=== PATIENT | female | born 1975 ===

== ENCOUNTER 2020-10-05 07:20 | Outpatient (REF) | payer BC, SELFPAY ==
--- NOTE | 2020-10-05 07:25 | MM_ITS ---
EXAMINATION: MM SCREENING DIGITAL BREAST TOMOSYNTHESIS, BILATERAL CLINICAL INFORMATION: Screening. Asymptomatic. Family history breast cancer, mother age 52; aunt, age 40s. The lifetime risk of breast cancer based on the Tyrer-Cuzick Model is 29%. COMPARISON: Mammography: 01/07/2017 (baseline). TECHNIQUE: Digital breast tomosynthesis is performed in both the craniocaudal and mediolateral oblique views along with computer-aided detection (CAD). Synthesized 2D images are generated from the tomosynthesis. Additional exaggerated right CC view is provided. FINDINGS: There are scattered areas of fibroglandular density (ACR BI-RADS breast composition Category b). There are no significant masses, abnormal calcifications, or other abnormalities. Parenchymal pattern is similar to prior exam. The skin contours are smooth. MM/MM tomosynthesis screening BI IMPRESSION: No significant changes from prior baseline exam 2016. ASSESSMENT: BI-RADS 1: Negative RECOMMENDATION: 1. Routine annual mammography screening. 2. The lifetime risk of breast cancer based on the Tyrer-Cuzick Model is 29%. Additional annual adjunct screening with breast MRI may be of benefit in women with a risk score of 20% or greater. This patient's information was entered into a reminder system with a target due date for their next mammogram.
[2020-10-05 09:24] LABS: Alanine Aminotransferase 115 U/L (0-31); Albumin Level 4.4 g/dL (3.5-5.0); Alkaline Phosphatase 118 U/L (39-117); Anion Gap 14 (12-20); Aspartate Amino Transferase 72 U/L (5-31); Bilirubin Total 0.3 mg/dL (0.0-1.0); Blood Urea Nitrogen 10 mg/dL (9-16); Calcium 9.4 mg/dL (8.4-10.2); Carbon Dioxide 26 mmol/L (22-29); Chloride 102 mmol/L (96-108); Estimated Glomerular Filt Rate > 60; Glucose Random 279 mg/dL (60-115); Potassium 4.5 mmol/l (3.3-5.1); Sodium 137 mmol/L (135-145); Total Protein 7.8 g/dL (6.5-8.0)
[2020-10-05 09:37] LABS: Free T4 (Free Thyroxine) 0.66 ng/dL (0.71-1.85); Thyroid Stimulating Hormone 21.85 uIU/mL (0.32-4.0)
[2020-10-06 17:57] LABS: Thyroid Peroxidase Antibodies 223 IU/mL (<9)
== END 2020-10-05 07:21 | disposition home or self-care (01) ==
LOC: HO.MAMMO 07:20
PROVIDERS: Absent Provider Internal Medicine; PCP Internal Medicine; Visit Provider Advanced Practice Midwife
DX: I10 Essential (primary) hypertension (principal); E03.9 Hypothyroidism, unspecified
CPT/HCPCS: 36415; 77063; 77067; 80053; 84439; 84443; 86376

== ENCOUNTER 2021-04-24 07:59 | Outpatient (REF) | payer OTHER, SELFPAY ==
[2021-04-24 08:28] LABS: MANUAL DIFF FLAG NO
[2021-04-24 08:34] LABS: Basophils Absolute Auto 0.1 X10*3/uL (0.0-0.2); Basophils Percent Auto 0.8 % (0-2); Eosinophils Absolute Auto 0.2 X10*3/uL (0.0-0.4); Hematocrit 41.8 % (37-47); Hemoglobin 13.4 g/dl (12.0-16.0); Imm Gran Abs Auto 0.07 X10*3/uL (0.00-0.03); Imm Gran Pct Auto 0.7 % (0.0-0.4); Lymphocytes Absolute Auto 2.5 X10*3/uL (1.2-4.9); Lymphocytes Percent Auto 24.2 % (20-40); Mean Corpuscular HGB Conc 32.1 g/dl (31.0-35.0); Mean Corpuscular Hemoglobin 29.5 pg (27.0-33.0); Mean Corpuscular Volume 92.1 fL (80-98); Mean Platelet Volume 10.8 fL (9.4-12.3); Monocytes Absolute Auto 0.6 X10*3/uL (0.1-1.2); Monocytes Percent Auto 5.5 % (2-11); Neutrophils Absolute Auto 6.8 X10*3/uL (2.0-8.3); Neutrophils Percent Auto 66.8 % (45-73); Platelet Count 352 X10*3/uL (160-400); Red Blood Count 4.54 X10*6/uL (4.20-5.50); Red Cell Distribution Width 14.5 % (11.0-16.0); White Blood Count 10.1 X10*3/uL (4.8-10.8)
[2021-04-24 08:46] LABS: Estimated Average Glucose 189 mg/dL; Hemoglobin A1c % 8.2 %
[2021-04-24 09:12] LABS: Alanine Aminotransferase 98 U/L (0-31); Albumin Level 4.5 g/dL (3.5-5.0); Alkaline Phosphatase 95 U/L (39-117); Anion Gap 14 (12-20); Aspartate Amino Transferase 83 U/L (5-31); Bilirubin Total 0.2 mg/dL (0.0-1.0); Blood Urea Nitrogen 14 mg/dL (9-16); Calcium 9.9 mg/dL (8.4-10.2); Carbon Dioxide 25 mmol/L (22-29); Chloride 105 mmol/L (96-108); Estimated Glomerular Filt Rate > 60; Glucose Random 172 mg/dL (60-115); Potassium 4.1 mmol/L (3.3-5.1); Sodium 140 mmol/L (135-145); Total Protein 7.9 g/dL (6.5-8.0)
[2021-04-24 09:23] LABS: Creatinine Urine 57.37 mg/dL; Microalbum/Creatinine Ratio Ur 36.6 ug/mg cr
[2021-04-24 09:47] LABS: Thyroid Stimulating Hormone 26.05 uIU/mL (0.32-4.0)
== END 2021-04-24 08:00 | disposition home or self-care (01) ==
LOC: HO.LAB 07:59
PROVIDERS: PCP Internal Medicine; Visit Provider Internal Medicine
DX: E03.9 Hypothyroidism, unspecified (principal); E11.9 Type 2 diabetes mellitus without complications; I10 Essential (primary) hypertension
CPT/HCPCS: 36415; 80053; 82043; 83036; 84439; 84443; 85025

== ENCOUNTER 2021-08-03 08:00 | Outpatient (REF) | payer OTHER, SELFPAY ==
[2021-08-03 09:19] LABS: Estimated Average Glucose 180 mg/dL; Hemoglobin A1c % 7.9 %
[2021-08-03 09:38] LABS: Anion Gap 16 (12-20); Blood Urea Nitrogen 16 mg/dL (9-16); Calcium 9.8 mg/dL (8.4-10.2); Carbon Dioxide 24 mmol/L (22-29); Chloride 104 mmol/L (96-108); Estimated Glomerular Filt Rate 59; Glucose Random 219 mg/dL (60-115); Potassium 4.8 mmol/L (3.3-5.1); Sodium 139 mmol/L (135-145)
[2021-08-03 10:00] LABS: Thyroid Stimulating Hormone 14.25 uIU/mL (0.32-4.0)
== END 2021-08-03 08:01 | disposition home or self-care (01) ==
LOC: HO.LAB 08:00
PROVIDERS: PCP Internal Medicine; Visit Provider Internal Medicine
DX: E03.9 Hypothyroidism, unspecified (principal); E11.9 Type 2 diabetes mellitus without complications
CPT/HCPCS: 36415; 80048; 83036; 84436; 84443

== ENCOUNTER → 2021-09-14 09:55 | Outpatient (BNVA) | payer OTHER, SELFPAY | PROVIDERS: PCP Internal Medicine; Referring Provider Internal Medicine; Visit Provider Surgery ==

== ENCOUNTER 2021-10-25 08:01 | Outpatient (REF) | payer OTHER, SELFPAY ==
[2021-10-27 13:37] LABS: HPV mRNA E6/E7 rflx Not Detected (Not Detected)
== END 2021-10-25 08:02 | disposition home or self-care (01) ==
LOC: HO.LAB 08:01
PROVIDERS: PCP Internal Medicine; Visit Provider Advanced Practice Midwife
DX: Z01.419 Encounter for gynecological examination (general) (routine) without abnormal findings (principal); Z11.51 Encounter for screening for human papillomavirus (HPV)
CPT/HCPCS: 87624; 88142

== ENCOUNTER 2021-11-23 07:54 | Outpatient (REF) | payer OTHER, SELFPAY ==
[2021-11-23 08:22] LABS: MANUAL DIFF FLAG NO
[2021-11-23 08:48] LABS: Basophils Percent Auto 0.4 % (0-2); Eosinophils Absolute Auto 0.1 X10*3/uL (0.0-0.4); Eosinophils Percent Auto 1.4 % (0-4); Hematocrit 40.7 % (37.0-47.0); Hemoglobin 13.2 g/dl (12.0-16.0); Imm Gran Abs Auto 0.06 X10*3/uL (0.00-0.03); Imm Gran Pct Auto 0.6 % (0.0-0.4); Lymphocytes Absolute Auto 2.1 X10*3/uL (1.2-4.9); Lymphocytes Percent Auto 21.1 % (20-40); Mean Corpuscular HGB Conc 32.4 g/dl (31.0-35.0); Mean Corpuscular Hemoglobin 29.7 pg (27.0-33.0); Mean Corpuscular Volume 91.5 fL (80.0-98.0); Mean Platelet Volume 10.8 fL (9.4-12.3); Monocytes Absolute Auto 0.5 X10*3/uL (0.1-1.2); Monocytes Percent Auto 5.3 % (2-11); Neutrophils Absolute Auto 6.9 x10*3/uL (2.0-8.3); Neutrophils Percent Auto 71.2 % (45-73); Platelet Count 307 X10*3/uL (160-400); Red Blood Count 4.45 X10*6/uL (4.20-5.50); Red Cell Distribution Width 14.9 % (11.0-16.0); White Blood Count 9.7 X10*3/uL (4.8-10.8)
[2021-11-23 08:58] LABS: Estimated Average Glucose 246 mg/dL; Hemoglobin A1c % 10.2 %
[2021-11-23 09:31] LABS: Alanine Aminotransferase 99 U/L (0-31); Albumin Level 4.2 g/dL (3.5-5.0); Alkaline Phosphatase 119 U/L (39-117); Anion Gap 17 (12-20); Aspartate Amino Transferase 71 U/L (5-31); Bilirubin Total 0.3 mg/dL (0.0-1.0); Blood Urea Nitrogen 17 mg/dL (9-16); Carbon Dioxide 24 mmol/L (22-29); Chloride 101 mmol/L (96-108); Estimated Glomerular Filt Rate > 60; Glucose Random 337 mg/dL (60-115); Potassium 4.6 mmol/L (3.3-5.1); Sodium 137 mmol/L (135-145); Total Protein 7.5 g/dL (6.5-8.0)
[2021-11-23 09:52] LABS: Thyroid Stimulating Hormone 11.38 uIU/mL (0.32-4.0)
[2021-11-23 10:36] LABS: Creatinine Urine 82.99 mg/dL; Microalbum/Creatinine Ratio Ur 33.7 ug/mg cr
== END 2021-11-23 07:55 | disposition home or self-care (01) ==
LOC: HO.LAB 07:54
PROVIDERS: PCP Internal Medicine; Visit Provider Internal Medicine
DX: E11.9 Type 2 diabetes mellitus without complications (principal); E03.9 Hypothyroidism, unspecified; I10 Essential (primary) hypertension; R79.89 Other specified abnormal findings of blood chemistry
CPT/HCPCS: 36415; 80053; 82043; 83036; 84439; 84443; 85025

== ENCOUNTER 2022-02-19 10:43 | Outpatient (REF) | payer OTHER, SELFPAY ==
--- NOTE | ~2022-02-19 | MM_ITS ---
EXAMINATION: MM SCREENING DIGITAL BREAST TOMOSYNTHESIS, BILATERAL CLINICAL INFORMATION: Screening. Asymptomatic. Family history breast cancer, mother. The lifetime risk of breast cancer based on the Tyrer-Cuzick Model is 28%. COMPARISON: Mammography: 10/05/2020, 01/07/2017 (baseline). TECHNIQUE: Digital breast tomosynthesis is performed in both the craniocaudal and mediolateral oblique views along with computer-aided detection (CAD). Synthesized 2D images are generated from the tomosynthesis. FINDINGS: There are scattered areas of fibroglandular density (ACR BI-RADS breast composition Category b). There are no significant masses, abnormal calcifications, or other abnormalities. There is no developing density or architectural abnormality. Small circumscribed dermal lesion overlies the inferior medial right breast on CC view. The axilla are unremarkable. No significant changes. MM/MM tomosynthesis screening BI IMPRESSION: No mammographic evidence of malignancy. ASSESSMENT: BI-RADS 2: Benign RECOMMENDATION: Routine annual mammography screening. This patient's information was entered into a reminder system with a target due date for their next mammogram.
== END 2022-02-19 10:44 | disposition home or self-care (01) ==
LOC: HO.MAMMO 10:43
PROVIDERS: PCP Internal Medicine; Visit Provider Internal Medicine
DX: Z12.31 Encounter for screening mammogram for malignant neoplasm of breast (principal)
CPT/HCPCS: 77063; 77067

== ENCOUNTER 2022-02-23 07:49 | Outpatient (REF) | payer OTHER, SELFPAY ==
[2022-02-23 08:47] LABS: Estimated Average Glucose 192 mg/dL; Hemoglobin A1c % 8.3 %
[2022-02-23 09:00] LABS: Alanine Aminotransferase 64 U/L (0-31); Albumin Level 4.1 g/dL (3.5-5.0); Alkaline Phosphatase 92 U/L (39-117); Anion Gap 14 (12-20); Aspartate Amino Transferase 40 U/L (5-31); Bilirubin Total 0.3 mg/dL (0.0-1.0); Blood Urea Nitrogen 14 mg/dL (9-16); Calcium 9.9 mg/dL (8.4-10.2); Carbon Dioxide 26 mmol/L (22-29); Chloride 102 mmol/L (96-108); Estimated Glomerular Filt Rate > 60; Glucose Random 230 mg/dL (60-115); Potassium 4.8 mmol/L (3.3-5.1); Sodium 137 mmol/L (135-145); Total Protein 7.4 g/dL (6.5-8.0)
[2022-02-23 09:06] LABS: Creatinine Urine 81.53 mg/dL; Microalbum/Creatinine Ratio Ur 6.1 ug/mg cr
[2022-02-23 09:16] LABS: Free T4 (Free Thyroxine) 1.18 ng/dL (0.71-1.85); Thyroid Stimulating Hormone 0.66 uIU/mL (0.32-4.0)
== END 2022-02-23 07:50 | disposition home or self-care (01) ==
LOC: HO.LAB 07:49
PROVIDERS: PCP Internal Medicine; Visit Provider Internal Medicine
DX: E11.9 Type 2 diabetes mellitus without complications (principal); E03.9 Hypothyroidism, unspecified; I10 Essential (primary) hypertension; R79.89 Other specified abnormal findings of blood chemistry
CPT/HCPCS: 36415; 80053; 82043; 83036; 84439; 84443

== ENCOUNTER 2022-08-23 07:51 | Outpatient (REF) | payer OTHER, SELFPAY ==
[2022-08-23 08:57] LABS: Estimated Average Glucose 177 mg/dL; Hemoglobin A1c % 7.8 %
[2022-08-23 09:31] LABS: Alanine Aminotransferase 41 U/L (0-31); Albumin Level 4.1 g/dL (3.5-5.0); Alkaline Phosphatase 104 U/L (39-117); Anion Gap 13 (12-20); Aspartate Amino Transferase 29 U/L (5-31); Bilirubin Total 0.3 mg/dL (0.0-1.0); Blood Urea Nitrogen 18 mg/dL (9-16); Calcium 9.6 mg/dL (8.4-10.2); Carbon Dioxide 26 mmol/L (22-29); Chloride 103 mmol/L (96-108); Estimated Glomerular Filt Rate > 60; Free T4 (Free Thyroxine) 1.21 ng/dL (0.71-1.85); Glucose Random 220 mg/dL (60-115); Potassium 4.4 mmol/L (3.3-5.1); Sodium 138 mmol/L (135-145); Thyroid Stimulating Hormone 0.02 uIU/mL (0.32-4.0); Total Protein 7.3 g/dL (6.5-8.0)
== END 2022-08-23 07:52 | disposition home or self-care (01) ==
LOC: HO.LAB 07:51
PROVIDERS: PCP Internal Medicine; Visit Provider Internal Medicine
DX: E03.9 Hypothyroidism, unspecified (principal); R79.89 Other specified abnormal findings of blood chemistry; I12.9 Hypertensive chronic kidney disease with stage 1 through stage 4 chronic kidney disease, or unspecified chronic kidney disease; E11.22 Type 2 diabetes mellitus with diabetic chronic kidney disease; N18.9 Chronic kidney disease, unspecified
CPT/HCPCS: 36415; 80053; 83036; 84439; 84443

== ENCOUNTER → 2022-10-29 07:58 | Outpatient (BNVA) | payer OTHER, SELFPAY | PROVIDERS: PCP Internal Medicine; Visit Provider Advanced Practice Midwife | DX: Z01.419 Encounter for gynecological examination (general) (routine) without abnormal findings (principal) ==

== ENCOUNTER 2023-03-25 09:09 | Outpatient (REF) | payer OTHER, SELFPAY ==
[2023-03-25 09:26] LABS: MANUAL DIFF FLAG NO
[2023-03-25 09:39] LABS: Basophils Absolute Auto 0.1 X10*3/uL (0.0-0.2); Basophils Percent Auto 0.7 % (0-2); Eosinophils Absolute Auto 0.1 X10*3/uL (0.0-0.4); Eosinophils Percent Auto 1.2 % (0-4); Hematocrit 39.7 % (37.0-47.0); Hemoglobin 12.6 g/dl (12.0-16.0); Imm Gran Abs Auto 0.04 X10*3/uL (0.00-0.03); Imm Gran Pct Auto 0.4 % (0.0-0.4); Lymphocytes Absolute Auto 2.4 X10*3/uL (1.2-4.9); Mean Corpuscular HGB Conc 31.7 g/dl (31.0-35.0); Mean Corpuscular Hemoglobin 25.6 pg (27.0-33.0); Mean Corpuscular Volume 80.5 fL (80.0-98.0); Mean Platelet Volume 9.8 fL (9.4-12.3); Monocytes Absolute Auto 0.5 X10*3/uL (0.1-1.2); Monocytes Percent Auto 5.3 % (2-11); Neutrophils Absolute Auto 5.9 x10*3/uL (2.0-8.3); Neutrophils Percent Auto 65.4 % (45-73); Platelet Count 387 X10*3/uL (160-400); Red Blood Count 4.93 X10*6/uL (4.20-5.50); Red Cell Distribution Width 15.2 % (11.0-16.0)
[2023-03-25 09:54] LABS: Estimated Average Glucose 200 mg/dL; Hemoglobin A1c % 8.6 %
[2023-03-25 10:18] LABS: Alanine Aminotransferase 33 U/L (0-31); Albumin Level 3.8 g/dL (3.5-5.0); Alkaline Phosphatase 117 U/L (39-117); Anion Gap 17 (12-20); Aspartate Amino Transferase 24 U/L (5-31); Bilirubin Total 0.3 mg/dL (0.0-1.0); Blood Urea Nitrogen 13 mg/dL (9-16); Calcium 9.7 mg/dL (8.4-10.2); Carbon Dioxide 23 mmol/L (22-29); Chloride 104 mmol/L (96-108); Cholesterol 174 mg/dL; Estimated Glomerular Filt Rate > 60; Glucose Fasting 222 mg/dL (60-99); HDL Cholesterol 38 mg/dL; LDL Cholesterol Calculated 99 mg/dl; Potassium 4.5 mmol/L (3.3-5.1); Sodium 139 mmol/L (135-145); Total Protein 7.6 g/dL (6.5-8.0); Triglycerides 185 mg/dL
[2023-03-25 10:23] LABS: Free T4 (Free Thyroxine) 1.21 ng/dL (0.71-1.85); Thyroid Stimulating Hormone 0.01 uIU/mL (0.32-4.0)
[2023-03-25 11:52] LABS: Creatinine Urine 161.99 mg/dL; Microalbum/Creatinine Ratio Ur 14.8 ug/mg cr
== END 2023-03-25 09:10 | disposition home or self-care (01) ==
LOC: HO.LAB 09:09
PROVIDERS: PCP Internal Medicine; Visit Provider Internal Medicine
DX: Z00.00 Encounter for general adult medical examination without abnormal findings (principal); E11.9 Type 2 diabetes mellitus without complications; E03.9 Hypothyroidism, unspecified
CPT/HCPCS: 36415; 80053; 80061; 82043; 83036; 84439; 84443; 85025

== ENCOUNTER 2023-04-29 07:22 | Outpatient (REF) | payer OTHER, SELFPAY ==
--- NOTE | ~2023-04-29 | MM_ITS ---
EXAMINATION: MM SCREENING DIGITAL BREAST TOMOSYNTHESIS, BILATERAL CLINICAL INFORMATION: Screening. Asymptomatic. The lifetime risk of breast cancer based on the Tyrer-Cuzick Model is 27%. COMPARISON: Mammography: This study is compared with prior exams dating back to 2017. TECHNIQUE: Digital breast tomosynthesis is performed in both the craniocaudal and mediolateral oblique views along with computer-aided detection (CAD). Synthesized 2D images are generated from the tomosynthesis. FINDINGS: There are scattered areas of fibroglandular density (ACR BI-RADS breast composition Category b). There are no significant masses, abnormal calcifications, or other abnormalities. MM/MM tomosynthesis screening BI IMPRESSION: No mammographic evidence of malignancy. Please note the patient's calculated high lifetime risk of breast cancer and family history. If high risk, adjunct annual screening breast MRI has not already begun, this is recommended. Genetic counseling may also be considered. ASSESSMENT: BI-RADS BI-RADS 1 - Negative RECOMMENDATION: Routine annual mammography screening. 1 year F/U This examination should not preclude the clinical evaluation of a suspicious palpable abnormality. This patient's information was entered into a reminder system with a target due date for their next mammogram.
== END 2023-04-29 07:23 | disposition home or self-care (01) ==
LOC: HO.MAMMO 07:22
PROVIDERS: PCP Internal Medicine; Visit Provider Internal Medicine
DX: Z12.31 Encounter for screening mammogram for malignant neoplasm of breast (principal)
CPT/HCPCS: 77063; 77067

== ENCOUNTER → 2023-04-29 07:30 | Outpatient (BNV) | payer OTHER, SELFPAY | PROVIDERS: PCP Internal Medicine; Visit Provider Radiology Diagnostic Radiology | DX: Z12.31 Encounter for screening mammogram for malignant neoplasm of breast (principal) | CPT/HCPCS: 77063; 77067 ==

== ENCOUNTER 2023-07-31 08:02 | Outpatient (REF) | payer OTHER, SELFPAY ==
[2023-07-31 09:58] LABS: Creatinine Urine 95.17 mg/dL; Microalbum/Creatinine Ratio Ur 5.2 ug/mg cr (<30)
[2023-07-31 10:06] LABS: Estimated Average Glucose 203 mg/dL; Hemoglobin A1c % 8.7 % (<6.0)
[2023-07-31 10:23] LABS: Alanine Aminotransferase 24 U/L (0-31); Alkaline Phosphatase 113 U/L (39-117); Anion Gap 15 (12-20); Aspartate Amino Transferase 17 U/L (5-31); Bilirubin Total 0.2 mg/dL (0.0-1.0); Blood Urea Nitrogen 13 mg/dL (9-16); Calcium 9.7 mg/dL (8.4-10.2); Carbon Dioxide 22 mmol/L (22-29); Chloride 105 mmol/L (96-108); Estimated Glomerular Filt Rate > 60; Glucose Random 278 mg/dL (60-115); Potassium 4.1 mmol/L (3.3-5.1); Sodium 138 mmol/L (135-145); Total Protein 7.5 g/dL (6.5-8.0)
[2023-07-31 11:14] LABS: Thyroid Stimulating Hormone < 0.01 uIU/mL (0.32-4.0)
== END 2023-07-31 08:03 | disposition home or self-care (01) ==
LOC: HO.LAB 08:02
PROVIDERS: PCP Internal Medicine; Visit Provider Internal Medicine
DX: E11.9 Type 2 diabetes mellitus without complications (principal); E03.9 Hypothyroidism, unspecified; I10 Essential (primary) hypertension
CPT/HCPCS: 36415; 80053; 82043; 82570; 83036; 84439; 84443

== ENCOUNTER 2023-12-05 07:47 | Outpatient (REF) | payer OTHER, SELFPAY ==
[2023-12-05 09:34] LABS: Anion Gap 14 (12-20); Blood Urea Nitrogen 10 mg/dL (9-16); Calcium 9.4 mg/dL (8.4-10.2); Carbon Dioxide 24 mmol/L (22-29); Chloride 104 mmol/L (96-108); Estimated Glomerular Filt Rate > 60; Glucose Random 280 mg/dL (60-115); Potassium 4.1 mmol/L (3.3-5.1); Sodium 138 mmol/L (135-145)
[2023-12-05 10:03] LABS: Free T4 (Free Thyroxine) 1.22 ng/dL (0.71-1.85); Thyroid Stimulating Hormone < 0.01 uIU/mL (0.32-4.0)
[2023-12-07 02:07] LABS: Triiodothyronine T3 Free 4.3 pg/mL (2.3-4.2)
== END 2023-12-05 07:48 | disposition home or self-care (01) ==
LOC: HO.LAB 07:47
PROVIDERS: PCP Internal Medicine; Visit Provider Internal Medicine
DX: E03.9 Hypothyroidism, unspecified (principal); R42 Dizziness and giddiness; I10 Essential (primary) hypertension; E11.9 Type 2 diabetes mellitus without complications
CPT/HCPCS: 36415; 80048; 84439; 84443; 84481

== ENCOUNTER 2024-05-04 07:19 | Outpatient (REF) | payer OTHER, SELFPAY ==
[2024-05-04 08:16] LABS: MANUAL DIFF FLAG NO
[2024-05-04 08:43] LABS: Basophils Absolute Auto 0.1 X10*3/uL (0.0-0.2); Basophils Percent Auto 0.6 % (0-2); Eosinophils Absolute Auto 0.1 X10*3/uL (0.0-0.4); Eosinophils Percent Auto 1.6 % (0-4); Hematocrit 36.8 % (37.0-47.0); Hemoglobin 11.3 g/dl (12.0-16.0); Imm Gran Abs Auto 0.04 X10*3/uL (0.00-0.03); Imm Gran Pct Auto 0.5 % (0.0-0.4); Lymphocytes Absolute Auto 2.7 X10*3/uL (1.2-4.9); Lymphocytes Percent Auto 31.4 % (20-40); Mean Corpuscular HGB Conc 30.7 g/dl (31.0-35.0); Mean Corpuscular Hemoglobin 22.7 pg (27.0-33.0); Monocytes Absolute Auto 0.6 X10*3/uL (0.1-1.2); Monocytes Percent Auto 6.9 % (2-11); Neutrophils Absolute Auto 5.1 x10*3/uL (2.0-8.3); Platelet Count 367 X10*3/uL (160-400); Red Blood Count 4.97 X10*6/uL (4.20-5.50); Red Cell Distribution Width 17.2 % (11.0-16.0); White Blood Count 8.6 X10*3/uL (4.8-10.8)
[2024-05-04 08:55] LABS: Estimated Average Glucose 177 mg/dL; Hemoglobin A1c % 7.8 % (<6.0)
[2024-05-04 09:19] LABS: Alanine Aminotransferase 19 U/L (0-31); Alkaline Phosphatase 141 U/L (39-117); Anion Gap 14 (12-20); Aspartate Amino Transferase 16 U/L (5-31); Bilirubin Total 0.2 mg/dL (0.0-1.0); Blood Urea Nitrogen 15 mg/dL (9-16); Calcium 9.8 mg/dL (8.4-10.2); Carbon Dioxide 22 mmol/L (22-29); Chloride 106 mmol/L (96-108); Estimated Glomerular Filt Rate > 60; Glucose Random 186 mg/dL (60-115); Sodium 138 mmol/L (135-145); Total Protein 7.7 g/dL (6.5-8.0)
[2024-05-04 09:36] LABS: Free T4 (Free Thyroxine) 1.42 ng/dL (0.71-1.85); Thyroid Stimulating Hormone < 0.01 uIU/mL (0.32-4.0)
[2024-05-04 10:50] LABS: Creatinine Urine 94.22 mg/dL; Microalbum/Creatinine Ratio Ur 10.6 ug/mg cr (<30)
== END 2024-05-04 07:20 | disposition home or self-care (01) ==
LOC: HO.MAMMO 07:19
PROVIDERS: PCP Internal Medicine; Visit Provider Internal Medicine
DX: Z12.31 Encounter for screening mammogram for malignant neoplasm of breast (principal); E11.9 Type 2 diabetes mellitus without complications; E03.9 Hypothyroidism, unspecified
CPT/HCPCS: 36415; 77063; 77067; 80053; 82043; 82570; 83036; 84439; 84443; 85025

== ENCOUNTER → 2024-05-04 07:30 | Outpatient (BNV) | payer OTHER, SELFPAY | PROVIDERS: PCP Internal Medicine; Visit Provider Radiology Diagnostic Radiology | DX: Z12.31 Encounter for screening mammogram for malignant neoplasm of breast (principal) | CPT/HCPCS: 77063; 77067 ==

== ENCOUNTER 2024-05-14 14:27 | Outpatient (AMB) | payer OTHER, SELFPAY ==
--- NOTE | 2024-05-14 14:34 | A.OFFVIS_ITS ---
Intake Visit Reasons: scalp cyst Intake Note: This patient presetns for scalpy cyst. Pt c/o; reports no pain or tenderness, reports no discharge, scalp cyst. Deputy Controller Required: No Accompanied by: Self / Same As Patient Allergies Sulfa (Sulfonamide Antibiotics) Allergy (Unknown, Verified 05/14/24 14:40) Unknown sulfamethoxazole [From BACTRIM] Allergy (Unknown, Verified 05/14/24 14:40) HIVES trimethoprim [From BACTRIM] Allergy (Unknown, Verified 05/14/24 14:40) HIVES Medication List - Last Reconciled 05/14/24 by Gigi Santillan MD dulaglutide (Trulicity) mg subcut glipizide ER 5 mg PO DAILY hydrochlorothiazide 12.5 mg PO DAILY levothyroxine 175 mcg PO DAILY losartan 50 mg PO DAILY metformin ER 500 mg PO BID omeprazole 20 mg PO DAILY triamterene-hydrochlorothiazid 37.5-25 mg 1 cap PO DAILY HPI HPI scalp cyst: Details: 49-year-old female here for scalp cysts. She is known to me for history of scalp cyst in the past She points to 2 areas on the mid parietal region were in she has scalp cysts that have been growing. She says she has had this for several years. She denies any discharge. [facility] Medical History (Updated 05/14/24 @ 14:58 by Gigi Santillan MD) Scalp cyst Abscess Morbid obesity Hypertension Surgical History History of removal of cyst Family History Mother History of breast cancer Maternal Aunt History of breast cancer Social History Alcohol intake: never Patient Tobacco Use Status: Never used Tobacco Sexual orientation: Straight/Heterosexual Gender identity: Female Review of Systems Const Denies chills and Denies fever(s) Card Denies chest pain, Denies dyspnea and Denies dyspnea on exertion Resp Denies cough, Denies dyspnea and Denies dyspnea on exertion GI Denies hematochezia and Denies change in bowel habits Denies hematuria Musc Denies back pain and Denies limited range of motion Neuro Denies focal weakness and Denies convulsions Psych Denies depression and Denies mood swings Physical Exam Const General: comfortable and no acute distress Orientation/consciousness: patient oriented x3 HEENT Other: Scalp cyst, parietal area, about 3 cm in diameter; adjacent to this is another scalp cyst about 2 cm in diameter, both noninflamed Neck Neck: Yes no lymphadenopathy Resp Auscultation: clear to auscultation bilaterally Cardio Rhythm: regular rhythm GI Palpation (GI): Soft to palpation, nontender and no guarding Neuro General: patient oriented x3 Assessment & Plan Assessment & Plan (1) Scalp cyst: Code(s): L72.9 - Follicular cyst of the skin and subcutaneous tissue, unspecified Category: Medical Plan: She has 2 scalp cysts as described above. She wants these removed because of increasing size and discomfort. I reviewed with the technique of excision under local anesthesia. I explained the risks including but not limited to bleeding and infections as well as the benefits and alternatives. She understands and wants to proceed We will schedule her for excision of this scalp cysts as an office procedure. Coding Level of Care Code New Pt Level 3 (52207) Diagnoses Scalp cyst L72.9
== END 2024-05-14 15:01 | disposition home or self-care (01) ==
PROVIDERS: PCP Internal Medicine; Visit Provider Surgery
DX: L72.9 Follicular cyst of the skin and subcutaneous tissue, unspecified (principal)
CPT/HCPCS: 99214

== ENCOUNTER → 2024-05-14 14:27 | Outpatient (BNVA) | payer OTHER, SELFPAY | PROVIDERS: PCP Internal Medicine; Visit Provider Surgery ==

== ENCOUNTER 2024-06-04 09:17 | Outpatient (REF) | payer OTHER, SELFPAY | END 2024-06-04 09:18 | disposition home or self-care (01) | LOC: HO.LNP 09:17 | PROVIDERS: PCP Internal Medicine; Visit Provider Surgery | DX: L72.11 Pilar cyst (principal) | CPT/HCPCS: 11422; 11424; 88304 ==

== ENCOUNTER 2024-06-04 09:17 | Outpatient (AMB) | payer OTHER, SELFPAY ==
--- NOTE | 2024-06-04 09:18 | MHC.OFFVIS ---
Intake Visit Reasons: excision scalp cyst Intake Note: Office procedure: excision scalp cyst. Asp Developer Required: No Accompanied by: Self / Same As Patient Allergies Sulfa (Sulfonamide Antibiotics) Allergy (Unknown, Verified 06/04/24 09:51) Unknown sulfamethoxazole [From BACTRIM] Allergy (Unknown, Verified 06/04/24 09:51) HIVES trimethoprim [From BACTRIM] Allergy (Unknown, Verified 06/04/24 09:51) HIVES HPI HPI excision scalp cyst: Details: She is here for excision of scalp cysts. [facility] Medical History (Updated 05/14/24 @ 14:58 by Gigi Santillan MD) Scalp cyst Abscess Morbid obesity Hypertension Surgical History (Updated 06/02/24 @ 13:14 by Charlotte Jama [facility]) History of removal of cyst History of removal of cyst Family History Mother History of breast cancer Maternal Aunt History of breast cancer Social History Alcohol intake: never Patient Tobacco Use Status: Never used Tobacco Sexual orientation: Straight/Heterosexual Gender identity: Female Office Procedures Excision Details: She was in reclining position. There were 2 scalp cysts on the parietal area. One was about 3 cm in diameter. The 2nd 1 was about 1 cm in diameter I infiltrated the 2 areas with lidocaine 1%. I made the incision on the scalp overlying the larger cyst with a blade 15. This carried down through the full-thickness of the skin and subcutaneous fat until the cyst capsule was visualized. I sharply dissected the cyst capsule off of the rest of the subcutaneous layer with fine scissors. This was then delivered and sent as a specimen. This was about 3 cm in diameter I made an incision on the 2nd area with a blade 15. This was carried down through the full-thickness of the skin subcutaneous fat until the cyst capsule was visualized. I sharply dissected the sips capsule off of the rest of the subcutaneous layer with fine scissors. This was delivered and sent as specimen. This about 1 cm in diameter The aggregate diameter of both cysts were therefore about 4 cm . I closed both incisions with 3-0 simple interrupted sutures. Bacitracin dressings were applied. The procedure was completed. She tolerated procedure well. There were no immediate complications. Estimated blood loss about 10 cc. [id number] scalp/neck/hands/feet/genitalia 3.1cm-4cm Procedure code (CPT) selection complete Assessment & Plan Assessment & Plan (1) Scalp cyst: Code(s): L72.9 - Follicular cyst of the skin and subcutaneous tissue, unspecified Category: Medical Plan: Excision was done under local anesthesia. She tolerated procedure well. She was given wound care instructions. I will see her in the office for removal sutures in about 2 weeks. Coding Level of Care Code Procedure Only Diagnoses Scalp cyst L72.9 CPT Codes Scalp/Neck/Hands/Feet/Genetalia - CPT: 05768-[id number] scalp/neck/hands/feet/genitalia 3.1cm-4cm ([id number])
== END 2024-06-04 09:56 | disposition home or self-care (01) ==
PROVIDERS: PCP Internal Medicine; Visit Provider Surgery
DX: L72.11 Pilar cyst (principal)
CPT/HCPCS: 11422; 11424

== ENCOUNTER 2024-06-18 13:55 | Outpatient (AMB) | payer OTHER, SELFPAY ==
--- NOTE | 2024-06-18 13:55 | MHC.OFFVIS ---
Intake Visit Reasons: suture removal excision scalp cyst Intake Note: This patient presents for suture removal excision scalp cyst. Pt c/o; reports no complaints. 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 She had tolerated the procedure well. She currently denies significant complaints. [facility] Medical History Scalp cyst Abscess Morbid obesity Hypertension Surgical History History of removal of cyst (~06/04/24) History of removal of cyst Family History Mother History of breast cancer Maternal Aunt History of breast cancer Social History Alcohol intake: never Patient Tobacco Use Status: Never used Tobacco Sexual orientation: Straight/Heterosexual Gender identity: Female Review of Systems Const Denies chills and Denies fever(s) Card Denies chest pain at rest Physical Exam Const General: comfortable and no acute distress HEENT Other: Both excision sites on the scalp are well healed, not infected, sutures intact Assessment & Plan Assessment & Plan (1) Scalp cyst: Code(s): L72.9 - Follicular cyst of the skin and subcutaneous tissue, unspecified Category: Medical Plan: Status post excision. Both sites are well healed. I removed all her sutures. The wound edges remained well apposed Her path report shows Pilar cysts. She understands the benign nature of this. She can follow up on a p.r.n. basis. Coding Level of Care Code Global (86508) Diagnoses Scalp cyst L72.9
== END 2024-06-18 14:03 | disposition home or self-care (01) ==
PROVIDERS: PCP Internal Medicine; Visit Provider Surgery
DX: L72.9 Follicular cyst of the skin and subcutaneous tissue, unspecified (principal)
CPT/HCPCS: 99024

== ENCOUNTER → 2024-06-18 13:55 | Outpatient (BNVA) | payer OTHER, SELFPAY | PROVIDERS: PCP Internal Medicine; Visit Provider Surgery | DX: L72.9 Follicular cyst of the skin and subcutaneous tissue, unspecified (principal) ==

== ENCOUNTER 2025-02-20 09:30 | Outpatient (REF) | payer OTHER, SELFPAY ==
[2025-02-20 09:48] LABS: MANUAL DIFF FLAG NO
[2025-02-20 10:06] LABS: Estimated Average Glucose 197 mg/dL; Hemoglobin A1C 195.3287 umol/L; Hemoglobin A1c % 8.5 % (<6.0); Total Hemoglobin (HGBA1C) 2804.7582 umol/L
[2025-02-20 10:11] LABS: Basophils Percent Auto 0.5 % (0-2); Eosinophils Absolute Auto 0.1 X10*3/uL (0.0-0.4); Eosinophils Percent Auto 1.7 % (0-4); Hematocrit 34.6 % (37.0-47.0); Hemoglobin 10.7 g/dl (12.0-16.0); Imm Gran Abs Auto 0.03 X10*3/uL (0.00-0.03); Imm Gran Pct Auto 0.4 % (0.0-0.4); Lymphocytes Percent Auto 25.6 % (20-40); Mean Corpuscular HGB Conc 30.9 g/dl (31.0-35.0); Mean Platelet Volume 9.8 fL (9.4-12.3); Monocytes Absolute Auto 0.5 X10*3/uL (0.1-1.2); Monocytes Percent Auto 6.2 % (2-11); Neutrophils Percent Auto 65.6 % (45-73); Platelet Count 377 X10*3/uL (160-400); Red Blood Count 4.87 X10*6/uL (4.20-5.50); Red Cell Distribution Width 18.6 % (11.0-16.0); White Blood Count 7.6 X10*3/uL (4.8-10.8)
[2025-02-20 10:29] LABS: Alanine Aminotransferase 18 U/L (0-31); Alkaline Phosphatase 154 U/L (39-117); Anion Gap 12 (12-20); Aspartate Amino Transferase 18 U/L (5-31); Bilirubin Total 0.2 mg/dL (0.0-1.0); Blood Urea Nitrogen 12 mg/dL (9-16); Calcium 9.2 mg/dL (8.4-10.2); Carbon Dioxide 23 mmol/L (22-29); Chloride 108 mmol/L (96-108); Cholesterol 200 mg/dL (<200); Estimated Glomerular Filt Rate > 60; Glucose Fasting 163 mg/dL (60-99); HDL Cholesterol 45 mg/dL (>40); LDL Cholesterol Calculated 110 mg/dL (<100); Potassium 4.2 mmol/L (3.3-5.1); Sodium 139 mmol/L (135-145); Total Protein 7.5 g/dL (6.5-8.0); Triglycerides 227 mg/dL (<150)
[2025-02-20 10:44] LABS: Creatinine Urine 133.61 mg/dL; Microalbum/Creatinine Ratio Ur 9.7 ug/mg cr (<30)
[2025-02-20 10:49] LABS: Free T4 (Free Thyroxine) 1.24 ng/dL (0.71-1.85); Thyroid Stimulating Hormone < 0.01 uIU/mL (0.32-4.0)
== END 2025-02-20 09:31 | disposition home or self-care (01) ==
LOC: HO.LAB 09:30
PROVIDERS: PCP Internal Medicine; Visit Provider Internal Medicine
DX: E11.9 Type 2 diabetes mellitus without complications (principal); E03.9 Hypothyroidism, unspecified; I10 Essential (primary) hypertension
CPT/HCPCS: 36415; 80053; 80061; 82043; 82570; 83036; 84439; 84443; 85025

== ENCOUNTER 2025-02-22 15:07 | Outpatient (AMB) | payer OTHER, SELFPAY ==
--- NOTE | 2025-02-22 15:10 | MHC.PC.OV ---
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 She reports compliance with all medications. She states she was previously taking Trulicity and Ozempic for management of her diabetes but was experiencing some nausea and was not noting and significant improvements in glucose levels and weight. She has been concerned about symptoms such as hot flashes, insomnia, and joint aches. She is still getting regular periods on metformin as she has a history of PCOS. She has been following annually for her eye exams. She is due for screening colonoscopy. [facility] Medical History (Updated 02/22/25 @ 16:53 by DELANEY Ng) HLD (hyperlipidemia) Type 2 diabetes mellitus Hypothyroidism Scalp cyst Abscess Morbid obesity Hypertension Surgical History History of removal of cyst (~06/04/24) History of removal of cyst Family History Mother History of breast cancer Maternal Aunt History of breast cancer Social History Alcohol intake: never Patient Tobacco Use Status: Never used Tobacco Sexual orientation: Straight/Heterosexual Gender identity: Female Review of Systems Const All systems reviewed & are unremarkable except as noted in HPI and below Physical exam (Primary Care) Vital Signs: Last Vital Signs Temp 97.4 F 02/22/25 15:14 Pulse 86 02/22/25 15:14 Resp 16 02/22/25 15:14 BP 132/80 02/22/25 15:14 Pulse Ox 97 02/22/25 15:14 Oxygen Delivery Method Room Air 02/22/25 15:14 BMI result Body Mass Index 45.1 Tobacco/Smoking Status: Tobacco use Status Patient Tobacco Use Status Never used Tobacco 02/22/25 15:17 Const Other: Constitutional - Awake and Alert, No apparent distress Eyes - PERRLA, EOMI Cardiovascular - S1S2, RRR, No edema Respiratory - Normal lung expansion, Normal respiratory effort, No respiratory distress, CTA bilaterally Extremities - no calf tenderness bilaterally, no swelling Skin - Warm/Dry Neurological - Alert & oriented x3 Psychological - Appropriate affect Coding Level of Care Code New Pt Level 4 (18015) Complex EM visit Add On G2211 Diagnoses Hypertension I10 Morbid obesity E66.01 Hypothyroidism E03.9 Type 2 diabetes mellitus E11.9 Perimenopause N95.1 HLD (hyperlipidemia) E78.5 Assessment & Plan Assessment & Plan (1) Hypertension: Code(s): I10 - Essential (primary) hypertension Category: Medical Plan: Controlled with blood pressure 132/80. Continue losartan 50 mg and hydrochlorothiazide 12.5 mg daily. Follow low-sodium diet. Reviewed renal function and electrolyte levels which were normal. (2) Morbid obesity: Code(s): E66.01 - Morbid (severe) obesity due to excess calories Category: Medical Plan: Weight loss efforts encouraged. Continue with healthy diet and improve regular exercise. She is started on Mounjaro to aid with weight loss but also managed glucose levels. (3) Hypothyroidism: Code(s): E03.9 - Hypothyroidism, unspecified Category: Medical Plan: TSH and free T4 ordered. TSH has historically been <0.01 with normal free T4 despite adjustments to dosing. We will reduce levothyroxine to 175 mcg daily. Will recheck TSH and free T4 in 4-6 weeks. We will also checked TPO. Unlikely that the GLP 1 was causing abnormalities in thyroid function as abnormalities in levels were present prior to initiation of Ozempic and Trulicity (4) Type 2 diabetes mellitus: Code(s): E11.9 - Type 2 diabetes mellitus without complications Category: Medical Plan: Uncontrolled with hemoglobin A1c 8.5%. Discussed re-initiation of GLP 1 agonist, Mounjaro. Discussed dosing and side effects of medication. Recommend vitamin supplementation as discussed. Continue glipizide and metformin twice daily as prescribed. Continue diabetic diet. Continue with annual eye exams. (5) Perimenopause: Code(s): N95.1 - Menopausal and female climacteric states Category: Medical Plan: Symptoms of insomnia, night sweats, and arthralgias/myalgias likely related to perimenopause. We will check estradiol, progesterone, testosterone, and FSH. (6) HLD (hyperlipidemia): Code(s): E78.5 - Hyperlipidemia, unspecified Category: Medical Plan: Uncontrolled. Increase atorvastatin to 40 mg daily. Follow-up lipid panel prior to next visit. Low fat diet Plan Labs to be completed in 4-6 weeks. Follow up in 3 months with labs completed prior to visit. Orders: Orders TSH reflex Free T4 3 Weeks E03.9 - Hypothyroidism, unspecified Thyroid Peroxidase Antibodies 3 Weeks E03.9 - Hypothyroidism, unspecified Hemoglobin A1c 10 Weeks E11.9 - Type 2 diabetes mellitus without complications, E78.5 - Hyperlipidemia, unspecified TSH reflex Free T4 6 Weeks E11.9 - Type 2 diabetes mellitus without complications, E78.5 - Hyperlipidemia, unspecified Estradiol Ultra Sensitive 6 Weeks N95.1 - Menopausal and female climacteric states, R23.2 - Flushing Testosterone, Free/Total 6 Weeks N95.1 - Menopausal and female climacteric states, R23.2 - Flushing Progesterone 6 Weeks N95.1 - Menopausal and female climacteric states, R23.2 - Flushing Follicle Stimulating Hormone Today N95.1 - Menopausal and female climacteric states, R23.2 - Flushing Triiodothyronine T3 Free 3 Weeks E03.9 - Hypothyroidism, unspecified Lipid Panel 6 Weeks E11.9 - Type 2 diabetes mellitus without complications, E78.5 - Hyperlipidemia, unspecified Referrals Gastroenterology Referral [id number] - Encounter for screening for lipoid disorders Medications: New atorvastatin 40 mg PO DAILY 90 tabs 1RF levothyroxine 175 mcg PO DAILY 90 tabs 1RF tirzepatide (Mounjaro) for 4 weeks 2.5 mg (0.5 mL) subcut QWEEK 2 mL 1RF
[2025-02-22 15:14] VITALS: BP 132/80; PULSE 86; RESP 16; TEMP 36.3; O2SAT 97; BMI 45.1
== END 2025-02-22 15:50 | disposition home or self-care (01) ==
LOC: HO.HMCHD 15:07
PROVIDERS: PCP Internal Medicine; Visit Provider Physician Assistant
DX: I10 Essential (primary) hypertension (principal); E66.01 Morbid (severe) obesity due to excess calories; E03.9 Hypothyroidism, unspecified; E11.9 Type 2 diabetes mellitus without complications; N95.1 Menopausal and female climacteric states; E78.5 Hyperlipidemia, unspecified

== ENCOUNTER → 2025-02-22 15:07 | Outpatient (BNVA) | payer OTHER, SELFPAY | PROVIDERS: PCP Internal Medicine; Visit Provider Physician Assistant ==

== ENCOUNTER 2025-05-10 07:21 | Outpatient (REF) | payer OTHER, SELFPAY ==
--- NOTE | ~2025-05-10 | MM_ITS ---
EXAMINATION: MM SCREENING DIGITAL BREAST TOMOSYNTHESIS, BILATERAL CLINICAL INFORMATION: Screening. Asymptomatic. COMPARISON: Mammography: Comparison is made with available priors TECHNIQUE: Digital breast mammography with tomosynthesis is performed in both the craniocaudal and mediolateral oblique views along with computer-aided detection (CAD). FINDINGS: There are scattered areas of fibroglandular density (ACR BI-RADS breast composition Category b). There are no significant masses, abnormal calcifications, or other abnormalities. MM/MM tomosynthesis screening BI IMPRESSION: No mammographic evidence of malignancy. ASSESSMENT: BI-RADS BI-RADS 1 - Negative RECOMMENDATION: Routine annual mammography screening. 1 year F/U This examination should not preclude the clinical evaluation of a suspicious palpable abnormality. This patient's information was entered into a reminder system with a target due date for their next mammogram. Electronically signed by: Geeta Miguel DO 05/18/2025 02:35 PM EDT
[2025-05-10 09:18] LABS: Cholesterol 141 mg/dL (<200); HDL Cholesterol 45 mg/dL (>40); Triglycerides 201 mg/dL (<150)
[2025-05-10 09:35] LABS: Hemoglobin A1C 165.6588 umol/L; Total Hemoglobin (HGBA1C) 2900.4484 umol/L
[2025-05-10 12:35] LABS: Free T4 (Free Thyroxine) 1.26 ng/dL (0.71-1.85)
[2025-05-11 06:58] LABS: Follicle Stimulating Hormone 15.3 mIU/mL
[2025-05-26 00:28] LABS: Estradiol Ultra Sensitive 110 pg/mL
[2025-06-02 08:52] LABS: Testosterone, Free 4.7
== END 2025-05-10 07:22 | disposition home or self-care (01) ==
LOC: HO.MAMMO 07:21
PROVIDERS: Absent Provider Physician Assistant; PCP Physician Assistant; Visit Provider Internal Medicine
DX: E03.9 Hypothyroidism, unspecified (principal); N95.1 Menopausal and female climacteric states; R23.2 Flushing; E11.9 Type 2 diabetes mellitus without complications; E78.5 Hyperlipidemia, unspecified; Z12.31 Encounter for screening mammogram for malignant neoplasm of breast; Z01.84 Encounter for antibody response examination
CPT/HCPCS: 36415; 77063; 77067; 80061; 82670; 83001; 83036; 84144; 84402; 84403; 84439; 84443; 84481; 86376

== ENCOUNTER → 2025-05-10 07:30 | Outpatient (BNV) | payer OTHER, SELFPAY | PROVIDERS: Absent Provider Physician Assistant; PCP Physician Assistant; Visit Provider Internal Medicine | DX: Z12.31 Encounter for screening mammogram for malignant neoplasm of breast (principal) | CPT/HCPCS: 77063; 77067 ==

== ENCOUNTER 2025-05-25 15:32 | Outpatient (AMB) | payer OTHER, SELFPAY ==
--- NOTE | 2025-05-25 15:36 | A.OFFPC_ITS ---
Vital Signs 05/25/25 15:41 Height 5 ft 5 in Weight 121.563 kg BMI 44.6 BP 126/82 Respiration 16 Pulse 76 Pulse Source Pulse Oximeter Temp 97.8 F Temp Source Temporal Artery Scan Pulse Oximetry (%) 97 Oxygen Delivery Method Room Air Intake Visit Reasons: 3 month f/u Insulation Estimator Required: No Accompanied by: Self / Same As Patient Allergies Sulfa (Sulfonamide Antibiotics) Allergy (Unknown, Verified 05/25/25 15:37) Unknown sulfamethoxazole (From BACTRIM) Allergy (Unknown, Verified 05/25/25 15:37) HIVES trimethoprim (From BACTRIM) Allergy (Unknown, Verified 05/25/25 15:37) HIVES Medication List - Last Reconciled 05/25/25 by DELANEY Ng atorvastatin 40 mg PO DAILY glipizide ER 5 mg PO DAILY hydrochlorothiazide 12.5 mg PO DAILY ketoconazole 2% 1 appl topical BID levothyroxine (Synthroid) 150 mcg PO DAILY losartan 50 mg PO DAILY metformin ER 500 mg PO BID Mounjaro (tirzepatide) 5 mg (0.5 mL) subcut QWEEK NS omeprazole 20 mg PO DAILY HPI HPI Comments History of Present Illness Details 49-year-old female with history of type 2 diabetes, hypertension, hypothyroidism, and hyperlipidemia with class 3 obesity presents to the office today for management of chronic conditions and to establish care. She reports compliance with all medications. She states she was previously taking Trulicity and Ozempic for management of her diabetes but was experiencing some nausea and was not noting and significant improvements in glucose levels and weight. She is still getting regular periods on metformin as she has a history of PCOS. She has been following annually for her eye exams. Started on mounjaro following previous appt and doing very well. Initially a lot of gas pains. Reports eating smaller portions with less cravings. No n/v/d or constipation. Fasting gluc 120-140, rare up to 160. ROS: General: No fevers, malaise, unintentional weight loss HEENT: No blurred vision, diplopia. No sore throat, nasal congestion, rhinorrhea, sinus pain, ear pain Cardiovascular: No chest pain, palpitations, or leg edema Respiratory: No shortness of breath, wheezing, cough GI: No abdominal pain, nausea, vomiting, diarrhea, constipation, melena, hematochezia : No dysuria, hematuria, increased urinary frequency, decreased urinary output MSK: No myalgia, back pain Neuro: No headaches, weakness, paresthesias Skin: No rashes or lesions EXAM: Constitutional - Awake and Alert, No apparent distress Eyes - PERRL Cardiovascular - S1S2, RRR, No edema Respiratory - Normal lung expansion, Normal respiratory effort, No respiratory distress, CTA bilaterally Extremities - no calf tenderness bilaterally, no swelling Skin - Warm/Dry Neurological - Alert & oriented x3 Psychological - Appropriate affect [facility] [place] Medical History (Updated 05/30/25 @ 15:00 by DELANEY Ng) HLD (hyperlipidemia) Type 2 diabetes mellitus Hypothyroidism Scalp cyst Abscess Morbid obesity Hypertension Surgical History History of removal of cyst (~06/04/24) History of removal of cyst Family History Mother History of breast cancer Maternal Aunt History of breast cancer Social History Alcohol intake: never Patient Tobacco Use Status: Never used Tobacco Sexual orientation: Straight/Heterosexual Gender identity: Female Physical exam (Primary Care) Vital Signs: Last Vital Signs Temp 97.8 F 05/25/25 15:41 Pulse 76 05/25/25 15:41 Resp 16 05/25/25 15:41 BP 126/82 05/25/25 15:41 Pulse Ox 97 05/25/25 15:41 Oxygen Delivery Method Room Air 05/25/25 15:41 BMI result Body Mass Index 44.6 Tobacco/Smoking Status: Tobacco use Status Patient Tobacco Use Status Never used Tobacco 05/25/25 15:38 Coding Level of Care Code Est Pt Level 4 (75595) Complex EM visit Add On G2211 Diagnoses Hypertension I10 HLD (hyperlipidemia) E78.5 Type 2 diabetes mellitus E11.9 Hypothyroidism E03.9 Assessment & Plan Assessment & Plan (1) Hypertension: Code(s): I10 - Essential (primary) hypertension Category: Medical Plan: controlled. continue current therapies (2) HLD (hyperlipidemia): Code(s): E78.5 - Hyperlipidemia, unspecified Category: Medical Plan: At goal. Continue current therapies and efforts toward weight loss (3) Type 2 diabetes mellitus: Code(s): E11.9 - Type 2 diabetes mellitus without complications Category: Medical Plan: Commended on lifestyle modifications. Continue current therapies. A1c slightly elevated but suspect will decrease with ongoing diet management. Annual eye exam (4) Hypothyroidism: Code(s): E03.9 - Hypothyroidism, unspecified Category: Medical Plan: Repeat TSH in 6 weeks. Ref to endo Plan Follow up in 3-4 months. Labs to be completed prior to visit Orders: Orders Basic Metabolic Panel 3 Months D64.9 - Anemia, unspecified, E03.9 - Hypothyroidism, unspecified, E11.9 - Type 2 diabetes mellitus without complications, E78.5 - Hyperlipidemia, unspecified, I10 - Essential (primary) hypertension Hemoglobin A1c 3 Months D64.9 - Anemia, unspecified, E03.9 - Hypothyroidism, unspecified, E11.9 - Type 2 diabetes mellitus without complications, E78.5 - Hyperlipidemia, unspecified, I10 - Essential (primary) hypertension Lipid Panel 3 Months D64.9 - Anemia, unspecified, E03.9 - Hypothyroidism, unspecified, E11.9 - Type 2 diabetes mellitus without complications, E78.5 - Hyperlipidemia, unspecified, I10 - Essential (primary) hypertension IRON PROFILE 3 Months D64.9 - Anemia, unspecified TSH reflex Free T4 6 Weeks E03.9 - Hypothyroidism, unspecified Complete Blood Count Auto Diff 3 Months D64.9 - Anemia, unspecified, E03.9 - Hypothyroidism, unspecified, E11.9 - Type 2 diabetes mellitus without complications, E78.5 - Hyperlipidemia, unspecified, I10 - Essential (primary) hypertension Referrals Endocrinology Referral E03.9 - Hypothyroidism, unspecified, R76.8 - Other specified abnormal immunological findings in serum Medications: New ketoconazole 2% 1 appl topical BID 30 grams 1RF Patient Instructions: Black cohosh
[2025-05-25 15:41] VITALS: BP 126/82; PULSE 76; RESP 16; TEMP 36.6; O2SAT 97; BMI 44.6
== END 2025-05-25 16:15 | disposition home or self-care (01) ==
LOC: HO.HMCHD 15:32
PROVIDERS: PCP Internal Medicine; Visit Provider Physician Assistant
DX: I10 Essential (primary) hypertension (principal); E78.5 Hyperlipidemia, unspecified; E11.9 Type 2 diabetes mellitus without complications; E03.9 Hypothyroidism, unspecified

== ENCOUNTER 2025-07-13 15:39 | Outpatient (AMB) | payer OTHER, SELFPAY ==
[2025-07-13 15:42] VITALS: BP 110/58; PULSE 98; O2SAT 98; BMI 43.6
--- NOTE | 2025-07-13 15:42 | A.OFFVIS_ITS ---
Vital Signs 07/13/25 15:42 Height 5 ft 5 in Weight 262 lb BMI 43.6 BP 110/58 L Blood Pressure Location Lt brachial Position Sitting Pulse 98 Pulse Oximetry (%) 98 Oxygen Delivery Method Room Air Intake Visit Reasons: colo screening Intake Note: Patient new consult for 1st pre Colonoscopy screening. Patient denies any GI issues. Entry Level Sales Associate Required: No Accompanied by: Self / Same As Patient Allergies Sulfa (Sulfonamide Antibiotics) Allergy (Unknown, Verified 07/13/25 15:42) Unknown sulfamethoxazole (From BACTRIM) Allergy (Unknown, Verified 07/13/25 15:42) HIVES trimethoprim (From BACTRIM) Allergy (Unknown, Verified 07/13/25 15:42) HIVES Medication List - Last Reconciled 07/13/25 by Yolanda Redding CNP atorvastatin 40 mg PO DAILY glipizide ER 5 mg PO DAILY hydrochlorothiazide 12.5 mg PO DAILY 90 days ketoconazole 2% 1 appl topical BID levothyroxine (Synthroid) 150 mcg PO DAILY losartan 50 mg PO DAILY metformin ER 500 mg PO BID omeprazole 20 mg PO DAILY tirzepatide (Mounjaro) 7.5 mg (0.5 mL) subcut QWEEK HPI HPI colo screening: Details: Patient is a 50-year-old female with PMH of obesity, diabetes, hyperlipidemia, hypertension, hyperthyroidism. Referred by PCP for pre colonoscopy screening Tatiana reports daily bowel movements without constipation, diarrhea, bleeding, or abdominal pain. Longstanding history of acid reflux, well-controlled with omeprazole for several years, with prior regurgitation symptoms resolved on therapy. No dysphagia or heartburn at present on medication. Past transient/mild anemia noted during recent menses, not ongoing or chronic. Multiple comorbidities managed medically (see PMH). No history of GI malignancy in first-degree relatives. Patient denies: fever/chills, n/v, appetite changes, dysphasia, unintentional wt loss, ab pain or melena/hematochezia. Social hx: -ETOH use, rare use 2-3x/year -denies recreational drug use -non-smoker - family hx as below -denies personal hx of CA -denies significant cardiopulmonary history -no prior sedation/anesthesia history. [facility] Medical History (Updated 07/13/25 @ 16:45 by Yolanda Redding CNP) Acid reflux Colon cancer screening HLD (hyperlipidemia) Type 2 diabetes mellitus Hypothyroidism Scalp cyst Abscess Morbid obesity Hypertension Surgical History History of removal of cyst (~06/04/24) History of removal of cyst Family History Mother History of breast cancer Maternal Aunt History of breast cancer Social History Alcohol intake: never Patient Tobacco Use Status: Never used Tobacco Sexual orientation: Straight/Heterosexual Gender identity: Female Review of Systems Const Reports as per HPI ENT Reports as per HPI Card Reports as per HPI Resp Reports as per HPI GI Reports as per HPI Reports as per HPI Physical Exam Vital Signs: Last Vital Signs Pulse 98 07/13/25 15:42 BP 110/58 L 07/13/25 15:42 Pulse Ox 98 07/13/25 15:42 Oxygen Delivery Method Room Air 07/13/25 15:42 BMI result Body Mass Index 43.6 Const General: healthy appearing, no acute distress and well developed Nutritional Appearance: obese Orientation/consciousness: patient oriented x3 HEENT Head: Yes normal to inspection, Yes normocephalic and Yes atraumatic Face and sinus: Yes normal facial exam Eyes General: appearance normal, both eyes and all related structures Neck Neck: Yes normal visual inspection Resp Effort & Inspection: normal respiratory effort, able to speak in complete sentences, no tracheal deviation and symmetric chest movement Cardio Jugular venous distension: no JVD GI Inspection: Yes obesity Neuro General: patient oriented x3 Gait exam (Neuro): Normal gait present Psych Appearance: grossly normal Mental Status: mental status grossly normal Speech and movement: Normal speech and movement present Affect: normal affect Attitude: cooperative Thought process: Normal thought process present Thought content: Normal thought content present Insight: Good insight present (Psych) Judgement: Good judgement present (Psych) Assessment & Plan Assessment & Plan (1) Colon cancer screening: Code(s): Z12.11 - Encounter for screening for malignant neoplasm of colon Category: Medical Plan: Due for index screening colonoscopy. Presence of mild anemia increases screening importance Medications: -prescriptions for laxative tablets and MiraLax sent to pharmacy; instructions for Gatorade purchase and clear liquid diet given. Understands diabetes medications will need to be held days prior to procedure. Nurse to review med holds per protocol. Patient educated on scheduling process, procedure preparation, including avoiding certain foods and ensuring clear liquid intake Advised on necessity for ride post-procedure due to sedation. (2) Acid reflux: Code(s): K21.9 - Gastro-esophageal reflux disease without esophagitis Category: Medical Qualifiers: Esophagitis presence: esophagitis presence not specified Qualified Code(s): K21.9 - Gastro-esophageal reflux disease without esophagitis Plan: Longstanding reflux, well-managed on omeprazole; history of regurgitation resolved with therapy; on chronic PPI Additional Testing: Upper endoscopy at time of colonoscopy for baseline evaluation, especially due to prolonged PPI use/regurgitation history Medication Management: Continue omeprazole Lifestyle Recommendations: Avoid aggravating foods as previously counseled; adhere to prep/fasting instructions before procedure Follow-Up: Routine unless new symptoms or findings (3) Anemia: Code(s): D64.9 - Anemia, unspecified Category: Medical Qualifiers: Anemia type: unspecified type Qualified Code(s): D64.9 - Anemia, unspecified Plan: Recent anemia noted on labs, likely menstrual; situational pattern, but GI etiology to be re-excluded Additional Testing: Repeat CBC, iron studies, folate, B12; ensure correction/absence of ongoing anemia especially prior to sedation/procedure Medication Management: None at this time; monitor labs Lifestyle Recommendations: N/A Follow-Up: Results review prior to procedure or sooner if new symptoms (bleeding, fatigue, pallor) Plan Follow-up after endoscopy or sooner as needed Time: I spent a total of 22 minutes on the date of encounter which includes: Preparing to see the patient (reviewed previous documentation, test results and medical history) Performing a medically appropriate exam and/or evaluation Ordering medications, tests, and procedures Documenting clinical information in the health record Orders: Orders Complete Blood Count Auto Diff Today D64.9 - Anemia, unspecified Vitamin B12 and Folate Today D64.9 - Anemia, unspecified IRON PROFILE Today D64.9 - Anemia, unspecified Referrals GI Procedure Notification D64.9 - Anemia, unspecified, K21.9 - Gastro- esophageal reflux disease without esophagitis, Z12.11 - Encounter for screening for malignant neoplasm of colon Medications: New bisacodyl Take per colonoscopy instructions 5 mg PO ONCE 4 tabs 0RF polyethylene glycol 3350 (Miralax) per colonoscopy prep instructions 238 grams PO ONCE 238 grams 0RF Coding Level of Care Code New Pt New Pt Level 2 (18705) Patient Type New Diagnoses Colon cancer screening Z12.11 Gastroesophageal reflux disease, unspecified whether esophagitis present K21.9 Esophagitis presence: esophagitis presence not specified Anemia, unspecified type D64.9 Anemia type: unspecified type
== END 2025-07-13 16:16 | disposition home or self-care (01) ==
LOC: HO.HGI 15:40
PROVIDERS: PCP Internal Medicine; Visit Provider Nurse Practitioner Family
DX: Z01.818 Encounter for other preprocedural examination (principal); Z12.11 Encounter for screening for malignant neoplasm of colon; K21.9 Gastro-esophageal reflux disease without esophagitis; D64.9 Anemia, unspecified
CPT/HCPCS: 99202

== ENCOUNTER 2025-07-23 08:06 | Outpatient (AMB) | payer OTHER, SELFPAY ==
--- NOTE | 2025-07-23 08:07 | MHC.OFFVIS ---
Vital Signs 07/23/25 08:08 Height 5 ft 5 in Weight 259 lb 7.745 oz BMI 43.2 BP 108/68 Blood Pressure Location Lt brachial Position Sitting Pulse 87 Pulse Source Pulse Oximeter Pulse Oximetry (%) 97 Oxygen Delivery Method Room Air Intake Visit Reasons: Hypothyroidism, unspecified Intake Note: New patient present today for Hypothyroidism, unspecified. Senior Information Security Architect Required: No Accompanied by: Self / Same As Patient Allergies dulaglutide (From Trulicity) Allergy (Intermediate, Verified 07/23/25 08:11) Hives Sulfa (Sulfonamide Antibiotics) Allergy (Unknown, Verified 07/23/25 08:11) Unknown sulfamethoxazole (From BACTRIM) Allergy (Unknown, Verified 07/23/25 08:11) HIVES trimethoprim (From BACTRIM) Allergy (Unknown, Verified 07/23/25 08:11) HIVES Medication List - Last Reconciled 07/23/25 by Silva Abbott MD atorvastatin 40 mg PO DAILY bisacodyl 5 mg PO ONCE glipizide ER 5 mg PO DAILY hydrochlorothiazide 12.5 mg PO DAILY 90 days ketoconazole 2% 1 appl topical BID levothyroxine (Synthroid) 150 mcg PO DAILY losartan 50 mg PO DAILY metformin ER 500 mg PO BID omeprazole 20 mg PO DAILY polyethylene glycol 3350 (Miralax) 238 grams PO ONCE tirzepatide (Mounjaro) 7.5 mg (0.5 mL) subcut QWEEK HPI Comments Details: 50-year-old female coming in today for initial evaluation of hypothyroidism. Hypothyroidism diagnosed in: age 43 years Currently on levothyroxine 150 mcg daily , takes it 5 AM ,on empty stomach, waits an hour before eating, patient endorses adherence to medication Last set of labs 05/10/2025, TSH less than 0.01, free T4 1.26, free T3 3.7, TPO antibodies 413, dose was reduced from 175 to 150 mcg after this blood work, prior to that she was on 200 mcg for a long time Currently on mounjaro 7.5 mg weekly, started Mounjaro summer 2024, was on Trulicty before that for 4 months. Since being on Mounjaro has lost 10lbs. Patient currently denies heat or cold intolerance, diarrhea or constipation, palpitation, anxiety, mood changes, changes in appearance of eyes or vision changes, tremors, increased diaphoresis or dry skin. ? reports low energy, hair loss Patient denies any difficulty swallowing, pain on swallowing or voice changes or difficulty breathing. Patient denies any history of childhood neck radiation. Denies having ever used lithium, amiodarone or biotin supplements. Patient denies any family history of thyroid cancer or thyroid disease. Physical exam General: sitting comfortably in no acute distress HEENT: normocephalic/atraumatic Neck: supple, symmetrical, no thyromegaly Cardiac: normal heart sounds Pulm: normal breath sounds B/L, no added breath sounds Abd: not distended Extremities: no edema, no signs of myxedema Laboratory Tests 10/06/18 01/22/19 04/07/20 08:16 07:58 12:45 Free T4 1.05 1.04 0.56 L TSH TSH 3rd Generation 4.63 H 2.16 17.11 H Free T3 Thyroid Peroxidase Ab 06/23/20 10/05/20 04/24/21 08:15 08:40 08:11 Free T4 0.72 0.66 L 0.80 TSH 21.85 H 26.05 H TSH 3rd Generation 15.43 H Free T3 Thyroid Peroxidase Ab 08/03/21 11/23/21 02/23/22 08:08 08:20 07:59 Free T4 0.80 1.18 TSH 14.25 H 11.38 H 0.66 TSH 3rd Generation Free T3 Thyroid Peroxidase Ab 08/23/22 03/25/23 07/31/23 08:06 09:25 08:31 Free T4 1.21 1.21 1.20 TSH 0.02 L 0.01 L < 0.01 L TSH 3rd Generation Free T3 Thyroid Peroxidase Ab 12/05/23 05/04/24 02/20/25 07:58 08:13 09:46 Free T4 1.22 1.42 1.24 TSH < 0.01 L < 0.01 L < 0.01 L TSH 3rd Generation Free T3 4.3 H Thyroid Peroxidase Ab 05/10/25 08:11 Free T4 1.26 TSH < 0.01 L TSH 3rd Generation Free T3 3.7 Thyroid Peroxidase Ab 413 H ON LICENSE OF [facility] Medical History (Updated 07/23/25 @ 08:43 by Silva Abbott MD) Acid reflux Colon cancer screening HLD (hyperlipidemia) Type 2 diabetes mellitus Hypothyroidism Scalp cyst Abscess Morbid obesity Hypertension Surgical History History of removal of cyst (~06/04/24) History of removal of cyst Family History Mother History of breast cancer Maternal Aunt History of breast cancer Social History Alcohol intake: never Patient Tobacco Use Status: Never used Tobacco Sexual orientation: Straight/Heterosexual Gender identity: Female Physical Exam Vital Signs: Last Vital Signs Pulse 87 07/23/25 08:08 BP 108/68 07/23/25 08:08 Pulse Ox 97 07/23/25 08:08 Oxygen Delivery Method Room Air 07/23/25 08:08 BMI result Body Mass Index 43.2 Assessment & Plan Assessment & Plan (1) Hypothyroidism: Code(s): E03.9 - Hypothyroidism, unspecified Category: Medical Qualifiers: 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 Currently on levothyroxine 150 mcg daily, dose was recently reduced in May 2025 after she had Last set of labs 05/10/2025, TSH less than 0.01, free T4 1.26, free T3 3.7, TPO antibodies 413. Her TSH has been suppressed over the past 2 years, based on her weight her dose is close to 190 mcg so it is not like she was on a very high dose. She has been on weight loss medications over this past year, but she has only lost 10 lb since she has started the meds. However when I look at her chart she has lost about 40 lb over the past 2-3 years. Most likely she is needing a dose reduction because of the loss in weight. However we will also check for stimulatory antibodies to ensure she is not developing hyperthyroidism. Though she does not have any stigmata of hyperthyroidism. At this point I will have her repeat labs. She has good adherence to the medication, with the appropriate administration. Plan: -ordered TSH, free T4, total T3, TSI and TSH receptor antibodies, we will reach out with the results -continue levothyroxine 150 mcg daily, we will change the dose depending on the results -follow up in 5 months Plan I spent 45 minutes in reviewing the record, seeing the patient and documenting in the medical record. Orders: Orders Thyroid Stimulating Hormone Today E03.9 - Hypothyroidism, unspecified Free T4 (Free Thyroxine) Today E03.9 - Hypothyroidism, unspecified Triiodothyronine T3 Total Today E03.9 - Hypothyroidism, unspecified Thyroid Stimulating Immunoglob Today E03.9 - Hypothyroidism, unspecified Thyrotropin Receptor Antibody Today E03.9 - Hypothyroidism, unspecified Patient Instructions: Continue levothyroxine 150 mcg daily Do blood work today, we will reach out with the results once all the blood work is back Depending on the results of the blood work we will let you know how we need to change the dose of levothyroxine Every time your dose is changed, you will need repeat blood work in about 6-8 weeks Follow up in 5 months Coding Level of Care Code New Pt Level 4 (88459) Diagnoses 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
[2025-07-23 08:08] VITALS: BP 108/68; PULSE 87; O2SAT 97; BMI 43.2
== END 2025-07-23 08:34 | disposition home or self-care (01) ==
LOC: HO.ENCR 08:06
PROVIDERS: PCP Internal Medicine; Visit Provider Student in an Organized Health Care Education/Training Program
DX: E06.3 Autoimmune thyroiditis (principal)
CPT/HCPCS: 99204

== ENCOUNTER 2025-07-23 08:06 | Outpatient (REF) | payer OTHER, SELFPAY ==
[2025-07-23 09:02] LABS: MANUAL DIFF FLAG NO
[2025-07-23 09:24] LABS: Hematocrit 36.9 % (37.0-47.0); Hemoglobin 11.2 g/dl (12.0-16.0); Imm Gran Abs Auto 0.04 X10*3/uL (0.00-0.03); Imm Gran Pct Auto 0.4 % (0.0-0.4); Lymphocytes Absolute Auto 2.0 X10*3/uL (1.2-4.9); Mean Corpuscular HGB Conc 30.4 g/dl (31.0-35.0); Mean Corpuscular Hemoglobin 21.8 pg (27.0-33.0); Mean Corpuscular Volume 71.8 fL (80.0-98.0); NRBC Abs Auto 0.000 X10*3/uL (0.0-0.012); NRBC Pct Auto 0.0 /100WBC (0.0-0.2); Platelet Count 407 X10*3/uL (160-400); Red Blood Count 5.14 X10*6/uL (4.20-5.50); White Blood Count 9.5 X10*3/uL (4.8-10.8)
[2025-07-23 10:28] LABS: Iron 29 mcg/dL (30-160); Percent Iron Saturation 8 % (15-50); Total Iron Binding Capacity 378 mcg/dL (228-428); Unsaturated Iron Binding 349 ug/dL
[2025-07-23 13:52] LABS: Folate 5.5 ng/mL (> or = 4.0); Free T4 (Free Thyroxine) 1.15 ng/dL (0.71-1.85); Thyroid Stimulating Hormone < 0.01 uIU/mL (0.32-4.0); Vitamin B12 540 pg/mL (200-900)
== END 2025-07-23 08:07 | disposition home or self-care (01) ==
LOC: HO.LAB 08:06
PROVIDERS: Absent Provider Nurse Practitioner Family; PCP Physician Assistant; Visit Provider Student in an Organized Health Care Education/Training Program
DX: E06.3 Autoimmune thyroiditis (principal); D64.9 Anemia, unspecified; Z79.899 Other long term (current) drug therapy
CPT/HCPCS: 36415; 82607; 82746; 83520; 83540; 84439; 84443; 84445; 84480; 85025

== ENCOUNTER 2025-10-05 06:55 | Day surgery (SDC) | payer OTHER, SELFPAY ==
--- NOTE | 2025-09-29 09:58 | HO.ANESPROP2 ---
Documented by User: Shari Boyer NP 09/29/25 10:00 HPI - Anesthesia Eval Consult details Narrative: 50 yr old female for upper endoscopy, colonoscopy BMI 43 Anesthesia Pre-Procedure Meds Is the patient on any of the following meds?: GLP1/DPP4 PMFSH Active Problems Active Problems: All Active Problems (Updated 07/30/25 @ 14:13 by Yolanda Redding CNP) Elevated alkaline phosphatase level (Acute) Acid reflux (Acute) Colon cancer screening (Acute) Anemia (Acute) Hot flashes (Acute) Perimenopause (Acute) HLD (hyperlipidemia) (Acute) Type 2 diabetes mellitus (Acute) Hypothyroidism (Acute) Scalp cyst (Acute) Abscess (Acute) Morbid obesity (Acute) Hypertension (Acute) Past Medical History Medical History Elevated alkaline phosphatase level Acid reflux Colon cancer screening HLD (hyperlipidemia) Type 2 diabetes mellitus Hypothyroidism Scalp cyst Abscess Morbid obesity Hypertension Family History Family History Mother History of breast cancer Maternal Aunt History of breast cancer Surgical History Surgical History History of removal of cyst (~06/04/24) History of removal of cyst Social History Social History Alcohol intake: never Patient Tobacco Use Status: Never used Tobacco Use of substances other than those prescribed or required for medical reasons: No Advance Directives: No Advance Directives Information Provided: Yes Sexual orientation: Straight/Heterosexual Gender identity: Female Meds Allergies Allergy/AdvReac Type Severity Reaction Status Date / Time dulaglutide (From Trulicity) Allergy Intermediate Hives Verified 07/23/25 08:11 Sulfa (Sulfonamide Allergy Intermediate Hives Verified 10/01/25 09:40 Antibiotics) sulfamethoxazole (From Allergy Intermediate HIVES Verified 10/01/25 09:40 BACTRIM) trimethoprim (From BACTRIM) Allergy Intermediate HIVES Verified 10/01/25 09:40 Assessment and Plan Assessment Anesthesia Assessment: Chart Reviewed Documented by User: Rocio Barger MD 10/05/25 07:56 PMFSH Past Medical History Medical History Elevated alkaline phosphatase level Acid reflux Colon cancer screening HLD (hyperlipidemia) Type 2 diabetes mellitus Hypothyroidism Scalp cyst Abscess Morbid obesity Hypertension Family History Family History Mother History of breast cancer Maternal Aunt History of breast cancer Family history of problems with anesthesia: No Surgical History Surgical History History of removal of cyst (~06/04/24) History of removal of cyst History of Problems with Anesthesia: No Social History Social History Alcohol intake: never Patient Tobacco Use Status: Never used Tobacco Use of substances other than those prescribed or required for medical reasons: No Advance Directives: No Advance Directives Information Provided: Yes Sexual orientation: Straight/Heterosexual Gender identity: Female Meds Allergies Allergy/AdvReac Type Severity Reaction Status Date / Time dulaglutide (From Trulicity) Allergy Intermediate Hives Verified 07/23/25 08:11 Sulfa (Sulfonamide Allergy Intermediate Hives Verified 10/01/25 09:40 Antibiotics) sulfamethoxazole (From Allergy Intermediate HIVES Verified 10/01/25 09:40 BACTRIM) trimethoprim (From BACTRIM) Allergy Intermediate HIVES Verified 10/01/25 09:40 Exam Airway Mallampati Class: III TM Dist: >3cm Neck ROM: Full Heart: rrr Lungs: cta Assessment and Plan Final Anesthetic Review Family History of Problems with Anesthesia: No History of Problems with Anesthesia: No NPO: Yes ASA Class: III Final Preanesthetic Review: No Changes in Pt Med Stat, Meds/Allgs Chart Reviewed, Consent Obtained/Reviewed and Anes Risks/Benef Reviewed Patient Risk: Intermediate Procedure Risk: Low Anesthetic Plan Anesthetic Plan: MAC: and Agree w/ Assess. and Plan Disposition: Standard PACU
[2025-10-01 09:48] VITALS: BMI 43.6
[2025-10-05 06:56] VITALS: BP 119/69; PULSE 105; RESP 20; TEMP 37.1; O2SAT 97; BMI 43.1
[2025-10-05 06:57] LABS: UPreg QC Valid YES
--- NOTE | 2025-10-05 07:58 | MHC.SHP ---
Pre-Procedural Eval Section A - 24 Hr Update-Section A only Date of Service: 10/05/25 Section B - Complete if H&P > 30 days Chief Complaint: anemia,gerd Details of Present Illness: Acid reflux Colon cancer screening HLD (hyperlipidemia) Type 2 diabetes mellitus Hypothyroidism Scalp cyst Abscess Morbid obesity Hypertension Surgical History History of removal of cyst (~06/04/24) History of removal of cyst Family History Mother History of breast cancer Maternal Aunt History of breast cancer Present Medications: see Short Stay Collaborative assessment Allergies: Allergies Allergy/AdvReac Type Severity Reaction Status Date / Time dulaglutide (From Trulicity) Allergy Intermediate Hives Verified 07/23/25 08:11 Sulfa (Sulfonamide Allergy Intermediate Hives Verified 10/01/25 09:40 Antibiotics) sulfamethoxazole (From Allergy Intermediate HIVES Verified 10/01/25 09:40 BACTRIM) trimethoprim (From BACTRIM) Allergy Intermediate HIVES Verified 10/01/25 09:40 Review of Systems Review of Systems Comment: 10 point ROS neg Exam Surgical H&P Exam: Normal: HEENT, Normal: Heart, Normal: Lungs, Normal: Extremities, Normal: Abdomen, Normal: Skin and Normal: Neurological Plan Diagnosis/Plan: Unchanged I have reviewed the history and physical and performed a pertinent physical examination on my patient. No changes have occurred unless specified. Time Spent With Patient Time: Total time managing care of this patient today ____ minutes.
--- NOTE | 2025-10-05 08:34 | P.OPN-COLO_ITS ---
Colonoscopy Operative Note Operative Note Date of Service: 10/05/25 Narrative: Procedure: Upper endoscopy and colonoscopy Indication: GERD, anemia Endoscopist: Aiyana Vale MD Anesthesia Provider: Chin Avila CRNA Anesthesia type: MAC Instrument: [id number] and [id number] EGD Procedure:?? The procedure, indications, preparation and potential complications were reviewed with the patient, who indicated understanding and gave written informed consent to proceed. The endoscope was introduced through the mouth, and advanced to the 2nd part of the duodenum. The mucosa was carefully examined on slow withdrawal of the endoscope. The patient tolerated the procedure well. There were no immediate complications.? EGD Findings:? * Esophagus:? Normal esophageal mucosa was noted. The Z-line was at 40 cm. This was displaced by a medium sized hiatal hernia with the diaphragmatic hiatus at 44 cm. Cold forceps biopsies were taken from middle and lower esophagus to rule out eosinophilic esophagitis. * Stomach:? Normal gastric mucosa. Retroflexion was performed in the cardia that showed Hill grade 3 hiatal hernia. * Duodenum:? Normal duodenal mucosa. Colonoscopy Procedure:? The patient was then turned for the colonoscopy. An abdominal binder was placed at the lower abdomen. A digital rectal exam was performed which was normal.? A distal attachment cap was affixed to the tip of the scope and the colonoscope was then inserted through the anus and advanced through the colon and advanced to the cecum at 85 cm.? Appendiceal orifice and ileocecal valve were identified. Mucosa was carefully examined under high definition white light as the instrument was slowly withdrawn in a retrograde panoramic fashion. Retroflexion was performed in rectum. The procedure was not difficult. The quality of the prep was BBPS: 3+3+2 = adequate Withdrawal time 9 minutes Limitations: No limitations Findings: Mucosa: Normal colon and terminal ileum mucosa. Protruding lesions: * One sessile polyp of size 5 mm noted in sigmoid colon. Cold snare polypectomy was performed. The polyp was completely removed and retrieved. * Small internal hemorrhoids without stigmata of recent bleeding. Impression: 1. Normal esophagus (biopsy) 2. Hiatal hernia 3. Normal stomach 4. Normal duodenum 5. Normal colon mucosa 6. Total 1 polyp removed 7. Internal hemorrhoids Recommendations:?? * Follow-up path results * No endoscopic evidence of esophagitis/reflux. Consider barium swallow for evaluation. * Repeat colonoscopy for CRC screening in 7-10 years depending on path.
[2025-10-05 08:42] VITALS: BP 91/48; PULSE 98; RESP 16; TEMP 36.1; O2SAT 94
[2025-10-05 08:55] VITALS: BP 114/69; PULSE 86; RESP 16; TEMP 36.1; O2SAT 96
[2025-10-05 09:09] VITALS: BP 121/68; PULSE 86; RESP 16; TEMP 36.7; O2SAT 96
[2025-10-05 09:12] LABS: Glucose, Whole Blood 135 mg/dL (60-115)
== END 2025-10-05 09:27 | disposition home or self-care (01) ==
PROVIDERS: PCP Physician Assistant; Visit Provider Internal Medicine
PROC: (CPT 45385; principal; 2025-10-05 07:30)
DX: Z12.11 Encounter for screening for malignant neoplasm of colon (principal); K21.9 Gastro-esophageal reflux disease without esophagitis; D64.9 Anemia, unspecified; E11.9 Type 2 diabetes mellitus without complications; K44.9 Diaphragmatic hernia without obstruction or gangrene; K64.8 Other hemorrhoids; K63.5 Polyp of colon
CPT/HCPCS: 45385; 43239; 81025; 82947; 88305; J2003; J2704

== ENCOUNTER → 2025-10-05 06:55 | Outpatient (BNV) | payer OTHER, SELFPAY | PROVIDERS: PCP Physician Assistant; Visit Provider Internal Medicine | DX: D64.9 Anemia, unspecified (principal); K44.9 Diaphragmatic hernia without obstruction or gangrene; K63.5 Polyp of colon; K64.8 Other hemorrhoids | CPT/HCPCS: 43239; 45385 ==